=== PATIENT | female | born 1985 | race Caucasian/White ===

== ENCOUNTER 2019-05-13 12:42 | Emergency (ER) | payer BC, OTHER ==
[~2019-05-13] VITALS: Ht 157.5 cm; Wt 49.2 kg
[~2019-05-13 12:42] MED LIST: FLUT9.9S NASAL; IBUP800T48 PO
[2019-05-13 12:52] VITALS: Ht 157.5 cm; Wt 49.2 kg
[2019-05-13] MEDS ORDERED: IBUPROFEN 800 MG TAB PO ONE (14:30)
--- NOTE | 2019-05-13 14:33 | ERD ---
ER Documentation Chief Complaint Chief Complaint BODYACHES, COUGH, CONGESTION, THROAT PAIN X6 DAYS, PMD REFERAL HPI 33-year-old female presents to the emergency room with approximately 5 to 6 days of symptoms that include nasal congestion, dry nonproductive cough, some mild cervical lymphadenopathy and sore throat. Patient was seen by primary care physician today and sent to the emergency room for further evaluation because of persistence of symptoms. Patient does have a bicuspid valve but denies any chest pain shortness of breath or difficulty breathing. Fever today was noted subjectively. ROS All systems reviewed and are negative except as per history of present illness. Medications Home Meds Active Scripts Fluticasone Propionate (Flonase Allergy Relief) 9.9 Ml Lookout.susp, 1 SPRAY NASAL BID for 7 Days, #1 BOTTLE TO EACH NOSTRIL Prov:ULYSSES WASHINGTON MD 05/13/19 Ibuprofen* (Motrin*) 800 Mg Tab, 800 MG PO Q6H PRN for PAIN AND OR ELEVATED TEMP, #30 TAB Prov:ULYSSES WASHINGTON MD 05/13/19 Allergies Allergies: Coded Allergies: No Known Allergy (Unverified , 05/13/19) PMhx/Soc Medical and Surgical Hx: pt denies Medical Hx, pt denies Surgical Hx Hx Alcohol Use: No Hx Substance Use: No Hx Tobacco Use: No Smoking Status: Never smoker FmHx Family History: No diabetes Physical Exam Vitals Vital Signs Date Temp Pulse Resp B/P (MAP) Pulse Ox O2 O2 Flow FiO2 Time Delivery Rate 05/13/19 99.5 103 17 115/76 100 12:52 (89) Physical Exam General: Well developed, well nourished, no acute distress Head: Normocephalic, atraumatic. Eyes: Pupils equally reactive, EOM intact ENT: Moist mucous membranes, posterior pharynx with uvula that is midline, no tonsillar swelling or exudates, posterior pharyngeal tissue is slightly erythematous and dry, soft submental space, tolerating secretions, tympanic membranes are nonbulging bilaterally Neck: Supple, mild bilateral anterior cervical chain lymphadenopathy Respiratory: Lungs clear bilaterally, no distress Cardiovascular: RRR, no murmurs, rubs, or gallops Abdominal: Soft, non-tender, non-distended, no peritoneal signs : Deferred MSK: No edema, no unilateral swelling, 5/5 strength Neurologic: Alert and oriented, moving all extremities, normal speech, no focal weakness, no cerebellar signs no meningismu Skin: No rash,s Psych: Normal mood Result Diagram: 05/13/19 1341 05/13/19 1341 Results 24 hrs Laboratory Tests Test 05/13/19 13:41 White Blood Count 7.6 10^3/ul Red Blood Count 4.73 10^6/ul Hemoglobin 13.2 g/dl Hematocrit 39.6 % Mean Corpuscular Volume 83.7 fl Mean Corpuscular Hemoglobin 27.9 pg Mean Corpuscular Hemoglobin Concent 33.3 g/dl Red Cell Distribution Width 13.2 % Platelet Count 247 10^3/UL Mean Platelet Volume 9.6 fl Immature Granulocytes % 0.400 % Neutrophils % 67.8 % Lymphocytes % 24.0 % Monocytes % 6.4 % Eosinophils % 0.7 % Basophils % 0.7 % Nucleated Red Blood Cells % 0.0 /100WBC Immature Granulocytes # 0.030 10^3/ul Neutrophils # 5.2 10^3/ul Lymphocytes # 1.8 10^3/ul Monocytes # 0.5 10^3/ul Eosinophils # 0.1 10^3/ul Basophils # 0.1 10^3/ul Nucleated Red Blood Cells # 0.0 10^3/ul Sodium Level 144 mmol/L Potassium Level 4.2 mmol/L Chloride Level 106 mmol/L Carbon Dioxide Level 27 mmol/L Anion Gap 11 Blood Urea Nitrogen 10 mg/dl Creatinine 0.58 mg/dl Est Glomerular Filtrat Rate mL/min > 60 mL/min Glucose Level 96 mg/dl Calcium Level 9.8 mg/dl Current Medications Medications Dose Sig/Neeru Start Time Status Last (Trade) Ordered Route PRN Stop Time Admin Dose Reason Admin Ibuprofen 800 mg ONCE ONCE 05/13/19 05/13/19 (Motrin) PO 14:30 05/13/19 14:27 14:31 Procedures/MDM LAB INTERPRETATION: I reviewed the laboratory testing and it shows no evidence of acute process MEDICAL DECISION MAKING: The patient's clinical exam history is very consistent with acute viral syndrome without signs or symptoms concerning for deep space infection, peritonsillar abscess or endocarditis. 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 The patient herself along with primary care physician had been requesting rapid strep screen. Clinically the patient appears to have viral process without evidence of bacterial infection. Patient symptomatology is not consistent with acute streptococcal pharyngitis, deep space infection, pneumonia or other serious bacterial infection. Reassurance was provided. [id number] medications are likely to be beneficial in this patient. ER COURSE: * Patient's laboratory testing is normal. The patient's vital signs remained stable and she is asymptomatic. * [id number] medications appropriate CONSULTATION: None DISPOSITION PLAN: The patient does not have an identifiable emergent medical condition that warrants inpatient hospitalization at this time. The patient is deemed safe for discharge with outpatient follow-up. We discussed follow up with the patient's primary care doctor within 24 to 48 hours as needed. We also discussed return to the emergency room for worsening symptoms or worsening condition. Outpatient referral: None required Discharge Medications: Flonase, Motrin Departure Diagnosis: Primary Impression: Acute viral pharyngitis Condition: Stable Patient Instructions: Pharyngitis, Viral Additional Instructions: Call your primary care doctor TOMORROW for an appointment during the next 1 WEEK.Tell the clerk secretary that you were referred from this facility.See the doctor sooner or return here if your condition worsens before your appointment time. ULYSSES WASHINGTON MD May 13, 2019 14:33
[2019-05-13 14:35] VITALS: BP 114/65; PULSE 78; RESP 20
== END 2019-05-13 14:41 | disposition home or self-care (01) ==
LOC: E/R 12:42
DX: J02.9 Acute pharyngitis, unspecified (principal)
CPT/HCPCS: 80048; 85025; 87430; 87880; 99283